=== PATIENT | female | born 1945 | race Caucasian/White ===

== ENCOUNTER 2017-02-07 13:15 | Emergency (ER) | payer MEDICARE, OTHER ==
--- NOTE | 2017-02-07 13:24 | EDM.PDOC ---
ED HPI GENERAL MEDICAL PROBLEM - General Chief Complaint: Chest Pain Stated Complaint: HIGH BLOOD PRESSURE AND CHEST PAIN Time Seen by Provider: 02/07/17 13:23 Source of Information: Reports: Patient History Limitations: Reports: No Limitations - History of Present Illness INITIAL COMMENTS - FREE TEXT/NARRATIVE: The patient is a 72-year-old female who presents to the ED complaining of substernal chest pain throughout most of the night. Patient states it started late in the evening and questioned if this maybe related to acid reflux.States discomfort went away with walking and worsened with lying flat. Denies any aggravating foods any or other precipitating factors. She does have a history of NSTEMI July 2016. Patient states the pain did radiate to the left side of her neck and through to her back. She had no SOB,nausea/vomiting, diaphoresis , dizziness, pre-/syncopal episodes, or any additional complaints. Patient states with admission to the ED the symptoms have completely resolved. She has no complaints. Pain at its peak was a 10 out of 10. Patient did take all her home medications this a.m. as prescribed. 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 Chest Pain Score (Numeric/FACES): 2 - Related Data Allergies Allergy/AdvReac Type Severity Reaction Status Date / Time No Known Allergies Allergy Verified 11/20/16 14:27 Home Meds: Home Meds Aspirin 81 mg PO DAILY 02/01/16 [History] Cholecalciferol (Vitamin D3) [Vitamin D3] 1,000 units PO DAILY 02/01/16 [History ] Garlic 1,000 mg PO DAILY 02/01/16 [History] [place]-3 Fatty Acids [Fish Oil] 500 mg PO DAILY 02/01/16 [History] Metoprolol Succinate [Metoprolol Succinate] 25 mg PO DAILY 08/28/16 [History] atorvaSTATin Calcium [Atorvastatin Calcium] 20 mg PO DAILY 08/28/16 [History] Alendronate [Fosamax] 70 mg PO DAILY 09/24/16 [History] Lisinopril 20 mg PO DAILY 09/24/16 [History] Multivitamin [Multivitamins] 1 each PO DAILY 09/24/16 [History] Past Medical History HEENT History: Reports: Impaired Vision Other HEENT History: glasses Cardiovascular History: Reports: High Cholesterol, Hypertension Respiratory History: Reports: None Gastrointestinal History: Reports: None 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: Musculoskeletal History: Reports: Osteoarthritis Psychiatric History: Reports: None Endocrine/Metabolic History: Reports: Diabetes, Type II Hematologic History: Reports: None Oncologic (Cancer) History: Reports: None - Past Surgical History Female Surgical History: Reports: Hysterectomy, Tubal Ligation Social & Family History - Family History Oncologic: Reports: Liver - Tobacco Use Smoking Status *Q: Never Smoker Second Hand Smoke Exposure: No - Caffeine Use Caffeine Use: Reports: None - Recreational Drug Use Recreational Drug Use: No - Living Situation & Occupation Living situation: Reports: , with Spouse, with Family Occupation: Retired ED ROS GENERAL - Review of Systems Review Of Systems: See Below Constitutional: Denies: Fever, Chills, Decreased Appetite Respiratory: Denies: Shortness of Breath, Cough, Sputum Cardiovascular: Reports: Chest Pain, Blood Pressure Problem. Denies: Dyspnea on Exertion, Lightheadedness, Palpitations, Syncope GI/Abdominal: Denies: Abdominal Pain, Constipation, Diarrhea, Nausea, Vomiting Musculoskeletal: Reports: Back Pain (with chest pain) Neurological: Denies: Dizziness, Numbness ED EXAM, GENERAL - Physical Exam Exam: See Below Exam Limited By: Other (poor historian) General Appearance: Alert, WD/WN, No Apparent Distress Eye Exam: Bilateral Eye: PERRL Ears: Hearing Grossly Normal Nose: Normal Inspection Throat/Mouth: Normal Voice, No Airway Compromise Respiratory/Chest: No Respiratory Distress, Lungs Clear, Normal Breath Sounds, No Accessory Muscle Use, Chest Non-Tender Cardiovascular: Normal Peripheral Pulses, Regular Rate, Rhythm, No Edema, No Murmur Peripheral Pulses: 2+: Radial (L), Radial (R) GI/Abdominal: Normal Bowel Sounds, Soft, Non-Tender, No Organomegaly, No Distention Back Exam: Normal Inspection, Full Range of Motion. No: CVA Tenderness (L), CVA Tenderness (R) Extremities: Normal Inspection, Non-Tender, No Pedal Edema, Normal Capillary Refill Neurological: Alert, Oriented, Normal Cognition, No Motor/Sensory Deficits Psychiatric: Normal Affect, Normal Mood Skin Exam: Warm, Dry, Intact, Normal Color Course - Vital Signs Last Recorded V/S: Last Vital Signs Temp 98.3 F 02/07/17 13:24 Pulse 78 02/07/17 13:24 Resp 19 02/07/17 13:24 BP Pulse Ox 99 02/07/17 16:03 - Orders/Labs/Meds Orders: Active Orders 24 hr Category Date Time Status EKG 12 Lead [EKG Documentation Completion] [RC] STAT Care 02/07/17 13:27 Active Oxygen Therapy, ED [RC] ASDIRECTED Care 02/07/17 13:42 Active Peripheral IV Care [RC] . DIRECTED Care 02/07/17 13:42 Active CXR [Chest 1V Frontal] [CR] Stat Exams 02/07/17 13:46 Taken Peripheral IV Insertion Adult [OM.PC] Stat Oth 02/07/17 13:41 Ordered Labs: Laboratory Tests 02/07/17 02/07/17 02/07/17 Range/Units 13:50 13:50 13:50 WBC 12.72 H (3.98-10.04) K/mm3 RBC 3.84 L (3.98-5.22) M/mm3 Hgb 11.9 (11.2-15.7) gm/L Hct 35.0 (34.1-44.9) % MCV 91.1 (79.4-94.8) fl MCH 31.0 (25.6-32.2) pg MCHC 34.0 (32.2-35.5) g/dl RDW Std Deviation 41.9 (36.4-46.3) fL Plt Count 254 (182-369) K/mm3 MPV 8.8 L (9.4-12.3) fl Neut % (Auto) 71.8 H (34.0-71.1) % Lymph % (Auto) 13.9 L (19.3-51.7) % [place] % (Auto) 13.9 H (4.7-12.5) % Eos % (Auto) 0 L (0.7-5.8) Baso % (Auto) 0.2 (0.1-1.2) % Neut # (Auto) 9.14 H (1.56-6.13) K/mm3 Lymph # (Auto) 1.77 (1.18-3.74) K/mm3 [place] # (Auto) 1.77 H (0.24-0.36) K/mm3 Eos # (Auto) 0.00 L (0.04-0.36) K/mm3 Baso # (Auto) 0.02 (0.01-0.08) K/mm3 Manual Slide Review Abnormal smear PT 11.0 (8.0-13.0) SECONDS INR 1.01 APTT 37 H (22-36) SECONDS Sodium 124 L (136-145) mEq/L Potassium 4.5 (3.5-5.1) mEq/L Chloride 91 L (98-107) mEq/L Carbon Dioxide 25 (21-32) mEq/L Anion Gap 12.5 (5-15) BUN 15 (7-18) mg/dL Creatinine 1.2 H (0.55-1.02) mg/dL Est Cr Clr Drug Dosing 36.59 mL/min Estimated GFR (MDRD) 44 (>60) mL/min BUN/Creatinine Ratio 12.5 L (14-18) Glucose 163 H (83-115) mg/dL Calcium 8.9 (8.5-10.1) mg/dL Total Bilirubin 0.8 (0.2-1.0) mg/dL AST 20 (15-37) U/L ALT 29 (14-59) U/L Alkaline Phosphatase 74 (46-116) U/L Troponin I < 0.017 (0.00-0.056) ng/mL Total Protein 7.6 (6.4-8.2) g/dl Albumin 3.3 L (3.4-5.0) g/dl Globulin 4.3 gm/dL Albumin/Globulin Ratio 0.8 L (1-2) 02/07/17 Range/Units 13:50 WBC (3.98-10.04) K/mm3 RBC (3.98-5.22) M/mm3 Hgb (11.2-15.7) gm/L Hct (34.1-44.9) % MCV (79.4-94.8) fl MCH (25.6-32.2) pg MCHC (32.2-35.5) g/dl RDW Std Deviation (36.4-46.3) fL Plt Count (182-369) K/mm3 MPV (9.4-12.3) fl Neut % (Auto) (34.0-71.1) % Lymph % (Auto) (19.3-51.7) % [place] % (Auto) (4.7-12.5) % Eos % (Auto) (0.7-5.8) Baso % (Auto) (0.1-1.2) % Neut # (Auto) (1.56-6.13) K/mm3 Lymph # (Auto) (1.18-3.74) K/mm3 [place] # (Auto) (0.24-0.36) K/mm3 Eos # (Auto) (0.04-0.36) K/mm3 Baso # (Auto) (0.01-0.08) K/mm3 Manual Slide Review PT (8.0-13.0) SECONDS INR APTT (22-36) SECONDS Sodium (136-145) mEq/L Potassium (3.5-5.1) mEq/L Chloride (98-107) mEq/L Carbon Dioxide (21-32) mEq/L Anion Gap (5-15) BUN (7-18) mg/dL Creatinine (0.55-1.02) mg/dL Est Cr Clr Drug Dosing mL/min Estimated GFR (MDRD) (>60) mL/min BUN/Creatinine Ratio (14-18) Glucose (83-115) mg/dL Calcium (8.5-10.1) mg/dL Total Bilirubin (0.2-1.0) mg/dL AST (15-37) U/L ALT (14-59) U/L Alkaline Phosphatase (46-116) U/L Troponin I < 0.017 (0.00-0.056) ng/mL Total Protein (6.4-8.2) g/dl Albumin (3.4-5.0) g/dl Globulin gm/dL Albumin/Globulin Ratio (1-2) Meds: Medications Discontinued Medications Generic Name Dose Route Start Last Admin Trade Name Freq PRN Reason Stop Dose Admin Aspirin 243 mg 02/07/17 13:38 02/07/17 13:59 Aspirin PO 02/07/17 13:39 243 mg ONETIME ONE Administration Morphine Sulfate 2 mg 02/07/17 13:42 Morphine IVPUSH ONETIME PRN Chest Pain Nitroglycerin 0.4 mg 02/07/17 13:42 Nitrostat SL Q5M PRN Chest Pain Sodium Chloride 10 ml 02/07/17 13:41 02/07/17 14:00 Saline Flush FLUSH 10 ml ASDIRECTED PRN Administration Keep Vein Open - Re-Assessments/Exams Free Text/Narrative Re-Assessment/Exam: 02/07/17 13:45 Patient is pain-free at this time. Ordered a peripheral IV. Aspirin 243 mg as patient took one 81 mg morning. The initial labs and studies include CBC, chem 14, troponin, PT/INR, CXR, and PTT. Ordered O2 PRN, morphine PRN, and Nitro PRN if chest pain comes back. EKG sinus rhythm rate of 76, normal P axis, [place] interval is 224 consistent with a first degree A-V block. Left bundle branch block present. QT [address]TC [address] No acute ST changes noted. This is compared with a previous EKG obtained 2015. LBBB was present at that time. CXR: No acute findings noted. Reviewed x-ray with Dr. Baxter. 1437 Labs reviewed:White blood cell count 12.72, hemoglobin is 11.9, neutrophil percent is 71.8, neutrophil #9.14, APTT 37, sodium 124, chloride 91, creatinine 1.2, troponin less than 0.017. Shared results of labs and studies. Patient is pain free at this time. 1521 Ordered second troponin. 02/07/17 16:19 2nd Troponin Negative. Patient has been pain free throughout her E.D. visit. Etiology unclear at this time. Patient eluded to this may have been acid reflux. Patient is a poor historian. Neverless she has hx of cad with NSTEMI and requires close followup. She is wishing to be discharged home. Will provide detailed instructions as documented on discharge. Departure - Departure Time of Disposition: 16:21 Disposition: Home, Self-Care 01 Condition: good Clinical Impression: Chest pain of uncertain etiology Instructions: Nonspecific Chest Pain Referrals: Sharon Yen DO [Primary Care Provider] - Forms: ED Department Discharge Additional Instructions: As discussed cause of chest pain is unclear at this time. As you had stated may have been related to acid reflux. Due to past medical history would like close followup with PCP this coming week. Call PCP clinic Thursday to schedule an appt. Continue taking all medications as prescribed. Refrain from any spicy foods, caffeinated beverages, or eating/drinking within 2 to 4 hours of going to bed. If you develop pain concerning for acid reflux take tums and/or maalox to see if this improves symptoms. If pain persists or have SOB,N/V,dizziness, pre/syncopa episode, or radiation of discomfort call 911 to be evaluated in the E.D. BECKI. - My Orders Last 24 Hours: My Active Orders 02/07/17 13:27 EKG 12 Lead [EKG Documentation Completion] [RC] STAT 02/07/17 13:41 Peripheral IV Insertion Adult [OM.PC] Stat 02/07/17 13:42 Oxygen Therapy, ED [RC] ASDIRECTED Peripheral IV Care [RC] . DIRECTED 02/07/17 13:46 CXR [Chest 1V Frontal] [CR] Stat - Assessment/Plan Last 24 Hours: My Active Orders 02/07/17 13:27 EKG 12 Lead [EKG Documentation Completion] [RC] STAT 02/07/17 13:41 Peripheral IV Insertion Adult [OM.PC] Stat 02/07/17 13:42 Oxygen Therapy, ED [RC] ASDIRECTED Peripheral IV Care [RC] . DIRECTED 02/07/17 13:46 CXR [Chest 1V Frontal] [CR] Stat
[2017-02-07] MEDS ORDERED: Aspirin 81 MG Tab.Chew PO ONE (13:38)
[2017-02-07] MEDS ORDERED: Sodium Chloride 0.9% 10 ML Syringe FLUSH PRN (13:41)
[2017-02-07] MEDS ORDERED: Nitroglycerin 0.4 MG Tab.SL SL PRN (13:42)
[2017-02-07] MEDS ORDERED: Morphine 2 MG/ML Syringe IVPUSH PRN (13:42)
--- NOTE | 2017-02-09 07:37 | CR ---
Chest: Portable view of the chest was obtained. Comparison: Previous chest x-ray of 08/14/16. Heart size and mediastinum are normal. Lungs are clear. Bony structures appear grossly intact. Impression: 1. Nothing acute is identified on portable chest x-ray. Diagnostic code #2
== END 2017-02-07 16:34 | disposition home or self-care (01) ==
LOC: JD.ED 13:15
DX: R07.2 Precordial pain (principal); I10 Essential (primary) hypertension; E78.00 Pure hypercholesterolemia, unspecified; E11.9 Type 2 diabetes mellitus without complications; M19.90 Unspecified osteoarthritis, unspecified site; Z90.710 Acquired absence of both cervix and uterus; Z79.82 Long term (current) use of aspirin; Z79.899 Other long term (current) drug therapy
CPT/HCPCS: 36415; 71010; 80053; 84484; 85025; 85610; 85730; 93005; 99285; A9270; J7050; 99284

== ENCOUNTER 2017-02-11 15:41 | Emergency (ER) | payer MEDICARE, OTHER ==
[2017-02-11 15:55] VITALS: BP 158/75
[2017-02-11] MEDS ORDERED: Sodium Chloride 0.9% 10 ML Syringe FLUSH PRN ×2 (16:15→18:41)
--- NOTE | 2017-02-11 16:17 | EDM.PDOC ---
ED HPI GENERAL MEDICAL PROBLEM - General Chief Complaint: Chest Pain Stated Complaint: LEFT SIDE CHEST PAIN Time Seen by Provider: 02/11/17 16:08 Source of Information: Reports: Patient History Limitations: Reports: No Limitations - History of Present Illness INITIAL COMMENTS - FREE TEXT/NARRATIVE: The patient is a 72-year-old female who presents to the ED complaining of left sided chest pain just under the left breast. States the pain stgarted this morning with no provoking factors. States at its worse it is a 10/10. Currently the pain is mild in nature. She has taken 3x adult dose 324mg ASA PO. Pain is is intermittent with no specific factors decreasing pain.Pain is localized with no noted radiation. patient has history of acid reflux and denies any change or rescent aggravation with food/drink. She does have a history of NSTEMI July 2016. She had no SOB,nausea/vomiting, diaphoresis, dizziness, pre-/syncopal episodes, or any additional complaints. Patient states with admission to the ED the symptoms are mild. She has no additional complaints. Patient did take all her home medications this a.m. as prescribed. Patient was evaluated this past weekend complaining of substernal chest pain with radiation to the right side. Dx as atypical chest pain after full cardiac workup. Past medical history: NSTEMI, hypertension, hypercholesterolemia, type 2 diabetes, hyponatremia Current medications baby aspirin 81 mg daily, metoprolol succinate 25 mg daily, atorvastatin 20 mg daily, lisinopril 20 mg daily Duration: Intermittent Location: Reports: Chest Quality: Reports: Sharp, Stabbing, Throbbing Improves with: Reports: None Worsens with: Reports: None Context: Reports: Other (none stated) Associated Symptoms: Reports: Chest Pain. 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 Left Chest Pain Score (Numeric/FACES): 5 - Related Data Allergies Allergy/AdvReac Type Severity Reaction Status Date / Time No Known Allergies Allergy Verified 02/11/17 15:55 Home Meds: Home Meds Aspirin 81 mg PO DAILY 02/01/16 [History] Cholecalciferol (Vitamin D3) [Vitamin D3] 1,000 units PO DAILY 02/01/16 [History ] Garlic 1,000 mg PO DAILY 02/01/16 [History] [place]-3 Fatty Acids [Fish Oil] 500 mg PO DAILY 02/01/16 [History] Metoprolol Succinate [Metoprolol Succinate] 25 mg PO DAILY 08/28/16 [History] atorvaSTATin Calcium [Atorvastatin Calcium] 20 mg PO DAILY 08/28/16 [History] Lisinopril 20 mg PO DAILY 09/24/16 [History] Multivitamin [Multivitamins] 1 each PO DAILY 09/24/16 [History] Past Medical History HEENT History: Reports: Impaired Vision Other HEENT History: glasses Cardiovascular History: Reports: High Cholesterol, Hypertension Respiratory History: Reports: None Gastrointestinal History: Reports: None 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: Musculoskeletal History: Reports: Osteoarthritis Psychiatric History: Reports: None Endocrine/Metabolic History: Reports: Diabetes, Type II Hematologic History: Reports: None Oncologic (Cancer) History: Reports: None - Past Surgical History Female Surgical History: Reports: Hysterectomy, Tubal Ligation Social & Family History - Family History Oncologic: Reports: Liver - Tobacco Use Smoking Status *Q: Never Smoker Second Hand Smoke Exposure: No - Caffeine Use Caffeine Use: Reports: None - Recreational Drug Use Recreational Drug Use: No - Living Situation & Occupation Living situation: Reports: , with Spouse, with Family Occupation: Retired ED ROS GENERAL - Review of Systems Review Of Systems: ROS reveals no pertinent complaints other than HPI. ED EXAM, GENERAL - Physical Exam Exam: See Below Exam Limited By: No Limitations General Appearance: Alert, WD/WN, No Apparent Distress Eye Exam: Bilateral Eye: PERRL Ears: Hearing Grossly Normal Nose: Normal Inspection Throat/Mouth: Normal Voice, No Airway Compromise Neck: Normal Inspection, Supple Respiratory/Chest: No Respiratory Distress, Lungs Clear, Normal Breath Sounds Cardiovascular: Normal Peripheral Pulses, Regular Rate, Rhythm, No Murmur Peripheral Pulses: 2+: Radial (L), Radial (R) GI/Abdominal: Normal Bowel Sounds, Soft, Non-Tender, No Organomegaly, No Distention Back Exam: Normal Inspection Extremities: Normal Inspection, Non-Tender, No Pedal Edema, Normal Capillary Refill Neurological: Alert, Oriented, CN II-XII Intact, Normal Cognition, No Motor/ Sensory Deficits Psychiatric: Normal Affect, Normal Mood Skin Exam: Warm, Dry, Intact, Normal Color, No Rash Course - Vital Signs Last Recorded V/S: Last Vital Signs Temp 97.9 F 02/11/17 15:50 Pulse 81 02/11/17 15:50 Resp 16 02/11/17 15:50 BP 158/75 H 02/11/17 15:50 Pulse Ox 100 02/11/17 15:50 - Orders/Labs/Meds Orders: Active Orders 24 hr Category Date Time Status EKG Documentation Completion [RC] STAT Care 02/11/17 16:20 Active Peripheral IV Care [RC] . DIRECTED Care 02/11/17 16:15 Active Chest 1V Frontal [CR] Stat Exams 02/11/17 16:15 Taken Peripheral IV Insertion Adult [OM.PC] Stat Oth 02/11/17 16:15 Ordered Labs: Laboratory Tests 02/11/17 02/11/17 02/11/17 Range/Units 16:20 16:20 16:20 WBC 8.50 (3.98-10.04) K/mm3 RBC 3.70 L (3.98-5.22) M/mm3 Hgb 11.4 (11.2-15.7) gm/L Hct 34.8 (34.1-44.9) % MCV 94.1 (79.4-94.8) fl MCH 30.8 (25.6-32.2) pg MCHC 32.8 (32.2-35.5) g/dl RDW Std Deviation 42.7 (36.4-46.3) fL Plt Count 327 (182-369) K/mm3 MPV 8.7 L (9.4-12.3) fl Neut % (Auto) 58.3 (34.0-71.1) % Lymph % (Auto) 25.8 (19.3-51.7) % [place] % (Auto) 13.3 H (4.7-12.5) % Eos % (Auto) 2.1 (0.7-5.8) Baso % (Auto) 0.4 (0.1-1.2) % Neut # (Auto) 4.96 (1.56-6.13) K/mm3 Lymph # (Auto) 2.19 (1.18-3.74) K/mm3 [place] # (Auto) 1.13 H (0.24-0.36) K/mm3 Eos # (Auto) 0.18 (0.04-0.36) K/mm3 Baso # (Auto) 0.03 (0.01-0.08) K/mm3 PT 9.9 (8.0-13.0) SECONDS INR 0.91 APTT (22-36) SECONDS Sodium 134 L (136-145) mEq/L Potassium 5.1 (3.5-5.1) mEq/L Chloride 99 (98-107) mEq/L Carbon Dioxide 23 (21-32) mEq/L Anion Gap 17.1 H (5-15) BUN 24 H (7-18) mg/dL Creatinine 1.2 H (0.55-1.02) mg/dL Est Cr Clr Drug Dosing 38.13 mL/min Estimated GFR (MDRD) 44 (>60) mL/min BUN/Creatinine Ratio 20.0 H (14-18) Glucose 126 H (83-115) mg/dL Calcium 9.8 (8.5-10.1) mg/dL Total Bilirubin 0.4 (0.2-1.0) mg/dL AST 24 (15-37) U/L ALT 35 (14-59) U/L Alkaline Phosphatase 74 (46-116) U/L Troponin I < 0.017 (0.00-0.056) ng/mL C-Reactive Protein 7.4 H* (<1.0) mg/dL Total Protein 8.2 (6.4-8.2) g/dl Albumin 3.3 L (3.4-5.0) g/dl Globulin 4.9 gm/dL Albumin/Globulin Ratio 0.7 L (1-2) Lipase (73-393) U/L 02/11/17 02/11/17 Range/Units 16:20 16:20 WBC (3.98-10.04) K/mm3 RBC (3.98-5.22) M/mm3 Hgb (11.2-15.7) gm/L Hct (34.1-44.9) % MCV (79.4-94.8) fl MCH (25.6-32.2) pg MCHC (32.2-35.5) g/dl RDW Std Deviation (36.4-46.3) fL Plt Count (182-369) K/mm3 MPV (9.4-12.3) fl Neut % (Auto) (34.0-71.1) % Lymph % (Auto) (19.3-51.7) % [place] % (Auto) (4.7-12.5) % Eos % (Auto) (0.7-5.8) Baso % (Auto) (0.1-1.2) % Neut # (Auto) (1.56-6.13) K/mm3 Lymph # (Auto) (1.18-3.74) K/mm3 [place] # (Auto) (0.24-0.36) K/mm3 Eos # (Auto) (0.04-0.36) K/mm3 Baso # (Auto) (0.01-0.08) K/mm3 PT (8.0-13.0) SECONDS INR APTT 29 (22-36) SECONDS Sodium (136-145) mEq/L Potassium (3.5-5.1) mEq/L Chloride (98-107) mEq/L Carbon Dioxide (21-32) mEq/L Anion Gap (5-15) BUN (7-18) mg/dL Creatinine (0.55-1.02) mg/dL Est Cr Clr Drug Dosing mL/min Estimated GFR (MDRD) (>60) mL/min BUN/Creatinine Ratio (14-18) Glucose (83-115) mg/dL Calcium (8.5-10.1) mg/dL Total Bilirubin (0.2-1.0) mg/dL AST (15-37) U/L ALT (14-59) U/L Alkaline Phosphatase (46-116) U/L Troponin I (0.00-0.056) ng/mL C-Reactive Protein (<1.0) mg/dL Total Protein (6.4-8.2) g/dl Albumin (3.4-5.0) g/dl Globulin gm/dL Albumin/Globulin Ratio (1-2) Lipase 270 (73-393) U/L Meds: Medications Discontinued Medications Generic Name Dose Route Start Last Admin Trade Name Freq PRN Reason Stop Dose Admin Diatrizoate Meglum/Diatrizoate Sod 90 ml 02/11/17 18:41 02/11/17 19:01 Gastrografin 37% PO 02/11/17 18:42 90 ml ONETIME ONE Administration Sodium Chloride 1,000 mls @ 150 mls/hr 02/11/17 17:45 02/11/17 17:43 Normal Saline IV 150 mls/hr ASDIRECTED EMILY Administration Iopamidol 125 ml 02/11/17 18:41 02/11/17 19:01 Isovue-300 (61%) IVPUSH 02/11/17 18:42 125 ml ONETIME ONE Administration Sodium Chloride 10 ml 02/11/17 16:15 02/11/17 16:31 Saline Flush FLUSH 10 ml ASDIRECTED PRN Administration Keep Vein Open Sodium Chloride 10 ml 02/11/17 18:41 02/11/17 19:01 Saline Flush FLUSH 10 ml ONETIME PRN Administration IV FLUSH - Re-Assessments/Exams Free Text/Narrative Re-Assessment/Exam: Ordered peripheral IV, CBC, chem 14, CRP, PT/INR, PTT, chest x-ray one view. Patient taking 3 adult aspirins prior to arrival. EKG sinus rhythm at a rate of 76, normal P axis, [place] interval is 136, QTC 457, left bundle branch block present. This was present from previous EKG dated 2016. No acute ST changes noted. Labs reviewed: Sodium 134, K+ 5.1. AG 17.1,Cr 1.2, glucose 126, troponin less than 0.017, CRP 7.4. White blood cell count 8.50, hemoglobin 12.4, coags within normal limits. Reexamination patient has increasing pain to the left upper quadrant with palpation. She denies any acid reflux. She denies any bloody diarrhea or melena. Ordered CT of abdomen and pelvis with oral and IV contrast. NS 250mls/hr ordered as well. 02/11/17 19:35 CT abdomen and pelvis impression: Incidental findings as noted above. Nothing acute is identified on CT study of the abdomen and pelvis. Discussed labs and CT findings with patient. Unclear etiology of current complaint.She has no nausea/vomiting/diarrhea. She does have a history of acid reflux but notes no increase noted recently. Has been no aggravation of pain with drinking or eating. I have ordered a lipase. We'll discharge patient home with instructions without results. She'll be notified if abnormal. Patient was instructed to take Prilosec 20 mg every day one hour prior to eating every morning. We'll have her follow up with Dr. Mota primary care provider at [facility] for further evaluations this coming week. 02/11/17 20:14 Lipase 270. Departure - Departure Time of Disposition: 19:39 Disposition: Home, Self-Care 01 Condition: good Clinical Impression: LUQ abdominal pain Instructions: Abdominal Pain, Adult, [id number] Referrals: Sharon Yen DO [Primary Care Provider] - Kayce Mota [Physician] - Forms: ED Department Discharge Additional Instructions: As discussed unknown etiology of current complaint. You do have a history of acid reflux with no recent worsening symptoms. Will start you on prilosec 20mg PO 1 hr prior to eating in the a.m. Refrain from caffeinated beverages, chocolate, spicy foods, and eating/drinking 4 hours prior to going to bed. Stop utilizing ibuprofen. Do not take more than one baby aspirin a day. If you do have exacerbation of acid reflux during the day can take maalox PRN following manufactures dosing instructions. Followup with this coming week for further evaluation. Return to the E.D. as needed for any new or worsening pain. - My Orders Last 24 Hours: My Active Orders 02/11/17 16:15 Peripheral IV Care [RC] . DIRECTED Chest 1V Frontal [CR] Stat Peripheral IV Insertion Adult [OM.PC] Stat 02/11/17 16:20 EKG Documentation Completion [RC] STAT - Assessment/Plan Last 24 Hours: My Active Orders 02/11/17 16:15 Peripheral IV Care [RC] . DIRECTED Chest 1V Frontal [CR] Stat Peripheral IV Insertion Adult [OM.PC] Stat 02/11/17 16:20 EKG Documentation Completion [RC] STAT
[2017-02-11] MEDS ORDERED: Sodium Chloride 0.9% 1,000 ML IV SCH (17:45)
[2017-02-11] MEDS ORDERED: Diatrizoate Meglumine/Diatrizoate Sodium 37% 120 ML Bottle PO ONE (18:41)
[2017-02-11] MEDS ORDERED: Iopamidol 612 MG/ML 150 ML Bottle IVPUSH ONE (18:41)
--- NOTE | 2017-02-11 19:56 | CT ---
CT abdomen and pelvis Technique: Multiple axial sections were obtained from above the dome of the diaphragm inferiorly through the pubic symphysis. Intravenous contrast was utilized as well as oral contrast. Delayed images were also obtained through the abdomen and pelvis. Comparison: No previous abdominal or pelvic CT exam. Findings: Visualized lung bases are clear. Low-density lesion is identified within the right lobe of liver anteriorly near the level of the duodenum. This shows slight enhancement and most likely represents a small hemangioma measuring approximately 1.8 cm. No additional abnormality is identified within the liver. Spleen appears within normal limits. Adrenal glands show no nodule. Pancreas is within normal limits. Kidneys show symmetric contrast enhancement. Cyst is identified within the mid left kidney measuring approximately 1.2 cm in size. Cyst also identified more inferiorly within the left kidney measuring 1.1 cm. Kidneys are otherwise unremarkable by CT examination. Aorta shows mild atherosclerotic change which continues into the iliac vessels. No aneurysm is seen. No retroperitoneal adenopathy or mesenteric abnormalities are seen. Appendix is seen which appears normal. No pelvic mass or adenopathy is seen. No inflammatory change or free fluid is seen. Delayed images shows contrast within the ureters which show no dilatation. Contrast noted within the bladder. Bone window settings were reviewed which shows mild anterior wedging of L1 which appears to be old. Disc space narrowing and vacuum phenomena is noted within the L4-L5 and L5-S1 disks. Scattered endplate osteophytes are seen. Impression: 1. Incidental findings as noted above. Nothing acute is identified on CT study of the abdomen and pelvis. Diagnostic code #2
--- NOTE | 2017-02-12 06:27 | CR ---
Chest: Portable view of the chest was obtained. Comparison: Previous chest x-ray of 02/07/17. Heart size and mediastinum are normal. Lungs are clear. Degenerative spurring is noted within the spine with minimal scoliosis. Impression: 1. Incidental findings. Nothing acute is identified on portable chest x-ray. Diagnostic code #2
== END 2017-02-11 20:00 | disposition home or self-care (01) ==
LOC: JD.ED 15:41
DX: R10.12 Left upper quadrant pain (principal); R07.9 Chest pain, unspecified; Z87.19 Personal history of other diseases of the digestive system; I10 Essential (primary) hypertension; E11.9 Type 2 diabetes mellitus without complications; I25.2 Old myocardial infarction; Z79.82 Long term (current) use of aspirin; Z79.899 Other long term (current) drug therapy; M41.9 Scoliosis, unspecified
CPT/HCPCS: 36415; 71010; 74177; 80053; 83690; 84484; 85025; 85610; 85730; 86140; 93005; 96360; 96361; 99285; J7040; J7050; Q9963; Q9967; 99283

== ENCOUNTER 2017-03-25 07:45 | Day surgery (SDC) | payer MEDICARE, OTHER ==
[~2017-03-25 07:45] MED LIST: Lactated Ringers 1,000 ML IV SCH; Lidocaine 1%/Sod Bicarbonate in NS 8.4% 1 ML Syringe PRN; Sodium Chloride 0.9% 10 ML Syringe FLUSH PRN
--- NOTE | 2017-03-25 08:30 | PCM.PREANE ---
Preanesthetic Assessment - Procedure Proposed Procedure: Screening colonoscopy - Anesthesia/Transfusion/Family Hx Anesthesia History: Prior Anesthesia Without Reaction Family History of Anesthesia Reaction: No Transfusion History: No Prior Transfusion(s) Intubation History: Unknown - Review of Systems General: No Symptoms Pulmonary: No Symptoms Cardiovascular: Other (HTN, hyperlipidemia, ischemic cardiomyopathy, [place] in 2015, ) Gastrointestinal: No symptoms Neurological: No Symptoms Other: Reports: None, Diabetes - Physical Assessment NPO Status Date: 03/24/17 NPO Status Time: 17:30 O2 Sat by Pulse Oximetry: 97 Respiratory Rate: 16 Vital Signs: Last Vital Signs Temp 36.6 C 03/25/17 07:55 Pulse 114 H 03/25/17 07:55 Resp 16 03/25/17 07:55 BP 159/72 H 03/25/17 07:55 Pulse Ox 97 03/25/17 07:55 Height: 1.65 m Weight: 70.307 kg ASA Class: 3 Mental Status: Alert & Oriented x3 Airway Class: Mallampati = 1 Dentition: Reports: Missing Tooth/Teeth (multiple missing and broken teeth, both fronnt bottom teeth missing ) Thyro-Mental Finger Breadths: 3 Mouth Opening Finger Breadths: 3 ROM/Head Extension: Full Lungs: Clear to auscultation, Normal respiratory effort Cardiovascular: Regular Rate, Tachycardia - Lab Values: Laboratory Last Values POC Glucose 118 mg/dL (83-110) H 03/25/17 08:05 - Allergies Allergies/Adverse Reactions: Allergies Allergy/AdvReac Type Severity Reaction Status Date / Time bonilla Allergy Cannot Verified 03/25/17 08:14 Remember soap Allergy Cannot Verified 03/25/17 08:14 Remember iv dye Allergy Cannot Uncoded 03/25/17 08:14 Remember - Blood Blood Available: No Product(s) Available: None - Anesthesia Plan Pre-Op Medication Ordered: None Beta Ky: Metoprolol Med Last Dose Date: 03/25/17 Med Last Dose Time: 08:20 - Acknowledgements Anesthesia Type Planned: MAC Pt an Appropriate Candidate for the Planned Anesthesia: Yes Alternatives and Risks of Anesthesia Discussed w Pt/Guardian: Yes Pt/Guardian Understands and Agrees with Anesthesia Plan: Yes PreAnesthesia Questionnaire HEENT History: Reports: Allergic Rhinitis, Impaired Vision Other HEENT History: glasses Cardiovascular History: Reports: CAD, High Cholesterol, Hypertension, Other ( See Below) Other Cardiovascular History: R carotid artery bruit Respiratory History: Reports: None Gastrointestinal History: Reports: None, Colon Polyp, GERD, Helicobacter Pylori , Other (See Below) Other Gastrointestinal History: epigastric pain 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: Musculoskeletal History: Reports: Arthritis, Osteoarthritis, Osteoporosis Neurological History: Reports: None Psychiatric History: Reports: None Endocrine/Metabolic History: Reports: Diabetes, Type II Hematologic History: Reports: None Immunologic History: Reports: None Oncologic (Cancer) History: Reports: None Dermatologic History: Reports: None - Past Surgical History Head Surgeries/Procedures: Reports: None GI Surgical History: Reports: Colonoscopy Female Surgical History: Reports: Hysterectomy, Tubal Ligation - SUBSTANCE USE Smoking Status *Q: Never Smoker Second Hand Smoke Exposure: No Recreational Drug Use History: No - HOME MEDS Home Medications: Home Meds Aspirin 81 mg PO DAILY 02/01/16 [History] Cholecalciferol (Vitamin D3) [Vitamin D3] 1,000 units PO DAILY 02/01/16 [History ] Garlic 1,000 mg PO DAILY 02/01/16 [History] [place]-3 Fatty Acids [Fish Oil] 500 mg PO DAILY 02/01/16 [History] Metoprolol Succinate [Metoprolol Succinate] 25 mg PO DAILY 08/28/16 [History] atorvaSTATin Calcium [Atorvastatin Calcium] 20 mg PO DAILY 08/28/16 [History] Alendronate [Fosamax] 70 mg PO WEEKLY 03/23/17 [History] Lisinopril 10 mg PO BID 03/23/17 [History] Omeprazole Magnesium [Prilosec Otc] 20 mg PO DAILY 03/23/17 [History] Vit A/C/E AC/Znox/Cupric Oxide [Eye Vitamin-Minerals Tablet] 1 tab PO DAILY 12/05 [History] - CURRENT (IN HOUSE) MEDS Current Meds: Current Medications Lactated Ringer's (Ringers, Lactated) 1,000 mls @ 125 mls/hr IV ASDIRECTED EMILY Stop: 03/25/17 23:00 Last Admin: 03/25/17 08:04 Dose: 125 mls/hr Lidocaine/Sodium Bicarbonate (Buffered Lidocaine 1% In Ns 8.4%) 0.25 ml .XX ONETIME PRN PRN Reason: Prior to IV Start Stop: 03/25/17 18:00 Last Admin: 03/25/17 08:04 Dose: 0.25 ml Sodium Chloride (Saline Flush) 10 ml FLUSH ASDIRECTED PRN PRN Reason: Keep Vein Open Stop: 03/25/17 18:00
[2017-03-25] MEDS ORDERED: Propofol 200 MG/20 ML SDV ONE (09:12)
[2017-03-25] MEDS ORDERED: Ketamine 500 mg/10 ML MDV ONE (09:13)
[2017-03-25] MEDS ORDERED: Lidocaine 1% 4 ML ONE (09:18)
--- NOTE | 2017-03-25 09:49 | PCM.OPNOTE ---
- General Post-Op/Procedure Note Date of Surgery/Procedure: 03/25/17 Operative Procedure(s): Colonoscopy Findings: Sigmoid diverticulosis. Poor bowel prep, Pre Op Diagnosis: History of colon polyps Post-Op Diagnosis: Sigmoid diverticulosis Anesthesia Technique: Moderate sedation Primary Surgeon: Jerome Mcbride Pathology: None EBL in mLs: 0 Complications: None Condition: Good Free Text/Narrative:: After adequate IV sedation and analgesia was obtained with monitoring the patient was placed on her left side. Perianal inspection and digital rectal examination were performed next and were normal. A lubricated colonoscope was inserted into the rectum then advanced under direct vision with air insufflation as necessary to the cecum. The cecum had a fair amount of particulate matter which I irrigated but couldn't completely clear. Nevertheless there were no mass lesions grossly seen. The right colon transverse and descending colons were unremarkable as well with no inflammatory changes or mass lesion seen in these areas. The sigmoid colon had scattered uncomplicated diverticuli. The rectum in both views was unremarkable. Air was removed as I finished the procedure which she tolerated well. Corsets Salesperson photographs were taken for the patient and for the record.
--- NOTE | 2017-03-25 11:02 | PCM48HPAN ---
Post Anesthesia Note - EVALUATION WITHIN 48HRS OF ANESTHETIC Vital Signs in Normal Range: Yes Patient Participated in Evaluation: Yes Respiratory Function Stable: Yes Airway Patent: Yes Cardiovascular Function Stable: Yes Hydration Status Stable: Yes Pain Control Satisfactory: Yes Nausea and Vomiting Control Satisfactory: Yes Mental Status Recovered: Yes
[2017-03-25 11:30] VITALS: BP 138/75
== END 2017-03-25 11:05 | disposition home or self-care (01) ==
LOC: JD.SDS 07:45
PROVIDERS: ATTEND Surgery
DX: Z12.11 Encounter for screening for malignant neoplasm of colon (principal); Z86.010 Personal history of colon polyps; K57.30 Diverticulosis of large intestine without perforation or abscess without bleeding; I25.10 Atherosclerotic heart disease of native coronary artery without angina pectoris; I10 Essential (primary) hypertension; E78.5 Hyperlipidemia, unspecified; E11.9 Type 2 diabetes mellitus without complications; I25.2 Old myocardial infarction; Z91.09 Other allergy status, other than to drugs and biological substances; Z91.041 Radiographic dye allergy status; Z79.82 Long term (current) use of aspirin; Z79.899 Other long term (current) drug therapy; Z98.51 Tubal ligation status
CPT/HCPCS: 82962; G0105; J7120; J2704

== ENCOUNTER 2024-09-23 12:58 | Emergency (ER) | payer MEDICARE, OTHER ==
[2024-09-23 14:17] VITALS: BP 148/95; PULSE 59
== END 2024-09-23 14:17 | disposition home or self-care (01) ==
LOC: JD.ED 12:58
DX: S09.90XA Unspecified injury of head, initial encounter (principal); I10 Essential (primary) hypertension; I25.10 Atherosclerotic heart disease of native coronary artery without angina pectoris; E78.00 Pure hypercholesterolemia, unspecified; E11.9 Type 2 diabetes mellitus without complications; Z91.048 Other nonmedicinal substance allergy status; Z91.041 Radiographic dye allergy status; Z79.82 Long term (current) use of aspirin; Z79.899 Other long term (current) drug therapy; Z90.710 Acquired absence of both cervix and uterus; W01.0XXA Fall on same level from slipping, tripping and stumbling without subsequent striking against object, initial encounter
CPT/HCPCS: 99283